=== PATIENT | female | born 1995 | race Caucasian/White ===

== ENCOUNTER 2018-01-28 00:13 | Observation (INO) ==
[2018-01-28 01:04] LABS: Amphetamine Screen,Urine Negative ng/mL (Cutoff=1000); Barbiturate Screen,Urine Negative ng/mL (Cutoff=200); Benzodiazepines Screen,Urine Negative ng/mL (Cutoff=200); Cannabinoid Screen,Urine Negative ng/mL (Cutoff = 50); Cocaine Screen,Urine Negative ng/mL (Cutoff= 300); Opiate Screen,Urine Negative ng/mL (Cutoff=300); Phencyclidine Screen,Urine Negative ng/mL (Cutoff=25)
[2018-01-28] MEDS ORDERED: Ringers Solution, Lactated 1,000 ML IVC SCH (03:30)
--- NOTE | 2018-01-28 03:34 | OB/GYN History & Physical ---
Date of Encounter: 01/28/18 Time of Encounter: 03:26 Assessment and Plan (1) 39 weeks gestation of Current visit: Yes Status: Acute admitted for observation for labor evaluation History of Present Illness Chief complaint: Contractions and low back pain HPI: Ms. Chaparro is a 22 year old female @ 39w3d with EDC of 02/02/2018 presents to labor and delivery with complaints of low back pain that comes and goes. Patient states she feels like it is back labor. Patient reports +FM denies LOF or VB. Patient sees Molly Salcedo CNM in [place]. Patient states she came to [place] because she did not have enough gas to get to [place]. Patient denies any complications with . She did have a recent in 12/2016. APatient does state she is GBS+. 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 Patient denies every having any outbreaks. Patient was agreeable for inspection of perineum and vagina for any lesions. Patient denies any Allergies to any medications. Blood type: A+ Rubella: Immune Hep B: Nonreactive GBS: Patient reports + result, attempting to get records faxed at this time. Past Med Surg Social Fam HX - Past Medical History Source: patient Medical history: asthma Psychiatric history: anxiety, depression - Past Surgical History Surgical History: orthopedic, other Additional surgical history: SURGERY ON BROKEN LT FEMUR - Social History Smoking Status: Current every day smoker Packs per day: 1/2 Smokeless Tobacco Status: No Alcohol use: none Drug use: marijuana Current living situation: Home - Independent Activity Level: Independent ambulation Recent Out of Country Travel Within the Last 8 Weeks: No Exposure or Possible Exposure to Illness During Travel: No - Family History Mother Living Status: Still Living Obstetrical History - Pregnancies : 2 Para: 1 Term: 1 : 0 Ab's: 0 Livin Medications and Allergies Vits #90/Iron Fum/FA [ Formula Tablet] 1 each PO DAILY 30 Days #30 tablet 06/14/17 [Rx] 3 Allergy/AdvReac Type Severity Reaction Status Date / Time No Known Allergies Allergy Verified 01/28/18 00:39 Review of System OB - Constitutional Constitutional ROS IM: no chills, no fever(s), no headache(s) - Cardiovascular Cardiovascular: no chest pain, no edema, no palpitations, no syncope - Respiratory Respiratory: no cough - Gastrointestinal Gastrointestinal: no abdominal pain, no diarrhea, no heartburn, no nausea, no vomiting - Genitourinary Genitourinary: no abnormal vaginal bleeding, no dysuria, no flank pain, no urinary urgency, no vaginal discharge, no vaginal odor, no vaginal pruritis Exam - Constitutional Constitutional: well developed, well nourished, no acute distress, average body habitus - HEENT HEENT: Normocephaly, Mucus Membranes Moist - Neck Neck exam: full ROM, supple - Lungs Respiratory exam: CTAB - Cardiovascular Cardiovascular exam: RRR, +S1, +S2 - Abdomen Abdomen: Present: bowel sounds normal, gravid, non tender - Extremities Extremities exam: full ROM, normal capillary refill Deep Tendon Reflex Grade: 2+ Normal - Vagina Vagina: Present: normal moisture - Cervix Dilation: 4 (3-4 per RN) Effacement: 60 Station: -2 - Uterus Uterus exam: Present: normal size, normal contour - Anus/Rectum Anus/Rectum: Present: normal perianal skin - Comments Comments: Speculum exam: No lesions noted. Results All other labs normal. - VTE Reasons for not Prescribing Prophylaxis: Treatment not Indicated - Low risk for VTE
[2018-01-28 03:42] LABS: Basophils % 0.2 %; Eosinophils % 0.3 %; Hematocrit 33.5 % (35.3-44.9); Hemoglobin 10.6 g/dL (11.5-15.4); Immature Granulocytes % 0.4 % (0-4); Lymphocytes # 2.5 K/mcL (0.6-4.6); Lymphocytes % 20.1 %; Mean Corpuscular HGB Conc 31.6 g/dL (31.6-35.5); Mean Corpuscular Hemoglobin 28.6 pg (28.0-33.3); Mean Corpuscular Volume 90.5 fL (83.0-100.0); Mean Platelet Volume 10.8 fL (9.4-12.4); Monocytes # 0.6 K/mcL (0.0-1.3); Platelet Count 219 K/mcL (140-400); Red Cell Distribution Width 13.5 % (11.5-14.5)
== END 2018-01-28 05:08 | disposition home or self-care (01) ==
LOC: 1NENULAB
PROVIDERS: ADMIT Advanced Practice Midwife; ATTEND Advanced Practice Midwife